=== PATIENT | female | born 1985 | race Caucasian/White ===

== ENCOUNTER 2024-11-22 15:21 | Emergency (ER) | payer SELFPAY ==
[2024-11-22] MEDS ORDERED: Ketorolac Tromethamine 30 MG (1 mL) VIAL ONE (15:49)
== END 2024-11-22 16:35 | disposition home or self-care (01) ==
LOC: BURERS 15:21
DX: M54.50 Low back pain, unspecified (principal); M54.6 Pain in thoracic spine; H91.90 Unspecified hearing loss, unspecified ear
CPT/HCPCS: 96372; 99283; J1885